=== PATIENT | male | born 1955 | race Caucasian/White ===

== ENCOUNTER 2024-06-04 06:01 | Day surgery (SDC) | payer MEDICARE ==
[2024-06-04] MEDS: Lactated Ringers 1,000 ML IV SCH (07:05)
[2024-06-04] MEDS ORDERED: Lidocaine 2% 5 ML SDV ONE (07:31)
[2024-06-04] MEDS ORDERED: Propofol 200 MG/20 ML SDV ONE ×2 (07:32→07:53)
== END 2024-06-04 09:05 | disposition home or self-care (01) ==
LOC: MW.SDS 06:01
PROVIDERS: ATTEND Surgery
DX: Z12.11 Encounter for screening for malignant neoplasm of colon (principal); R19.5 Other fecal abnormalities; D12.0 Benign neoplasm of cecum; D12.5 Benign neoplasm of sigmoid colon; D12.6 Benign neoplasm of colon, unspecified; K57.30 Diverticulosis of large intestine without perforation or abscess without bleeding; K64.8 Other hemorrhoids; Z87.891 Personal history of nicotine dependence; Z79.82 Long term (current) use of aspirin; Z79.899 Other long term (current) drug therapy; Z88.5 Allergy status to narcotic agent
CPT/HCPCS: 00811; 88305; J2704; J3490; J7120